=== PATIENT | male | born 1990 | race Caucasian/White ===

== ENCOUNTER → 2024-03-19 06:23 | Day surgery (SDC) | payer BC, SELFPAY | LOC: GI 06:23 | PROVIDERS: ATTENDING PHYSICIAN Internal Medicine | DX: K58.0 Irritable bowel syndrome with diarrhea (principal); R10.12 Left upper quadrant pain; R19.7 Diarrhea, unspecified | CPT/HCPCS: 45380; 88305 ==

== ENCOUNTER → 2024-04-24 14:38 | Outpatient (REF) | payer BC, SELFPAY | LOC: HWRAD 14:38 | PROVIDERS: ATTENDING PHYSICIAN Student in an Organized Health Care Education/Training Program | DX: R10.11 Right upper quadrant pain (principal); R10.12 Left upper quadrant pain; F10.11 Alcohol abuse, in remission | CPT/HCPCS: 74160; Q9967 ==

== ENCOUNTER → 2024-07-01 13:08 | Outpatient (REF) | payer BC, SELFPAY | LOC: HWRAD 13:08 | PROVIDERS: ATTENDING PHYSICIAN Surgery; FAMILY PHYSICIAN Student in an Organized Health Care Education/Training Program | DX: K56.1 Intussusception (principal) | CPT/HCPCS: 74177; Q9967 ==